=== PATIENT | male | born 1975 | race Hispanic/Latino ===

== ENCOUNTER → 2024-08-16 15:19 | Outpatient (CLI) | payer SELFPAY ==
[2024-08-16 18:54] LABS: Influenza A - CEPHEID Flu A NEGATIVE (NEGATIVE); Influenza B - CEPHEID Flu B NEGATIVE (NEGATIVE); Respiratory Syncytial Virus Negative (Negative)
[2024-08-16 18:57] LABS: COVID-19 CEPHEID 4-PLEX PCR Negative (Negative)
== END ==
PROVIDERS: Visit Provider Nurse Practitioner Family
DX: R05.9 Cough, unspecified (principal)
CPT/HCPCS: 0241U

== ENCOUNTER 2024-09-21 20:48 | Emergency (ER) | payer SELFPAY ==
[2024-09-21 21:10] VITALS: BP 140/90; PULSE 78; RESP 16; TEMP 36.8; O2SAT 97; BMI 31.8
--- NOTE | 2024-09-21 21:17 | DI.RAD.S_ITS ---
PROCEDURE: XR FINGER LT MIN 2V INDICATIONS: pain injury 2 weeks ago TECHNIQUE: AP hand, 2 views of the left 2nd finger(s) acquired. COMPARISON: None. FINDINGS: Bones: No fractures or dislocations. No suspicious bony lesions. Soft tissues: No suspicious soft tissue calcifications. IMPRESSION: Left hand and index finger without acute osseous abnormalities. If there are persistent symptoms or clinical suspicion for pathology, then repeat radiographs or advanced imaging (CT or MRI) may be considered for further evaluation. Dictated by: Alexx Rob M.D. on 09/21/2024 at 22:28 Approved by: Alexx Rob M.D. on 09/21/2024 at 22:28
[2024-09-22] MEDS: IBUPROFEN 400 MG TABLET 800 MG PO (01:26)
--- NOTE | 2024-09-22 01:40 | ED_ITS ---
HPI - Extremity Injury (Upper) General Chief Complaint: Extremity Injury, Upper Stated Complaint: injured L hand loading lawnmower fingers now numb Time Seen by Provider: 09/22/24 01:39 Source: patient Mode of arrival: Ambulatory History of Present Illness HPI narrative: Patient presents with left index finger pain following an injury approximately two weeks ago. 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 The patient visited a walk-in clinic where an X-ray was performed, but the results were not communicated to him. He reports persistent pain, particularly when the area is pinched, but denies any loss of sensation or visible bruising. The patient has not experienced any cuts or breaks in the skin. Related Data Home Medications Medication Instructions Recorded Confirmed No Known Home Medications 09/21/24 09/21/24 Allergies Allergy/AdvReac Type Severity Reaction Status Date / Time No Known Allergies Allergy Uncoded 08/16/24 15:13 Review of Systems Review of Systems Narrative: Constitutional: no fevers. Eyes: no visual changes. Ears/Nose/Throat: no nasal congestion or drainage. Respiratory: no soa. Cardiac: no chest pain. Gastrointestinal: no nausea and vomiting. Skin: no laceration, no rash. Musculoskeletal: reports pain in the left index finger, particularly when pinched. No loss of sensation or visible bruising. Neurologic: no confusion. Psychiatric: no mood change. Other: other. Patient History Social History Smoking Status: Never smoker Smoking Status: Never smoker Exam Narrative Exam Narrative: General: Well appearing, well nourished, in no distress. Skin: Good turgor, no rash, unusual bruising or prominent lesions. Head: Normocephalic, atraumatic. HEENT: Conjunctiva clear, EOM intact, PERRL, Mucous membranes moist. Neck: Supple, normal ROM. Heart: Regular rate and rhythm, no murmur or gallop or rubs. Lungs: Clear to auscultation. No rales, rhonchi, or wheezes. Abdomen: Soft and nontender. Bowel sounds normal. No mass or hernia. Back: Spine normal without deformity or tenderness, no CVA tenderness. Extremities: Tenderness in the left index finger, no visible bruising or swelling, full range of motion, no loss of sensation. Peripheral pulses intact. Neurologic: CN 2-12 normal. Normal sensation and motor exam. Psychiatric: Oriented X3. Normal mood and affect. Initial Vital Signs Initial Vital Signs: Vital Signs Temperature 98.3 F 09/21/24 21:10 Pulse Rate 78 09/21/24 21:10 Respiratory Rate 16 09/21/24 21:10 Blood Pressure 140/90 09/21/24 21:10 Pulse Oximetry 97 09/21/24 21:10 Oxygen Delivery Method Room Air 09/21/24 21:10 Course Orders Ordered: ED Orders 09/21/24 21:17 XR finger LT min 2V Stat Discontinued Medications Ibuprofen (Ibuprofen 400 Mg Tablet) 800 mg PO NOW ONE Stop: 09/22/24 01:24 Last Admin: 09/22/24 01:26 Dose: 800 mg Documented By: DION Vital Signs Vital signs: Vital Signs - 8 hr 09/21/24 21:10 09/22/24 01:57 Temperature 98.3 F Pulse Rate 78 72 Respiratory Rate 16 17 Blood Pressure 140/90 121/81 Pulse Oximetry 97 98 Oxygen Delivery Method Room Air Room Air MDM - Extremity Injury (Upper) Imaging Data Extremity x-ray #1: My Impression: I see no obvious fractures, dislocations or abnormalities on left hand/pointer finger Radiologist's Impression: Radiology calls for no osseous abnormalities on evaluation of plain film recommend CT or MRI outpatient I was needed MDM Narrative Medical decision making narrative: INITIAL EVALUATION AND PLAN: - Review X-ray results to confirm no fracture. - Referral to a hand specialist for further evaluation of potential ligament injury or soft tissue damage. - Recommend [id number] pain management with Tylenol or ibuprofen. - Provide discharge paperwork and specialist contact information. Differential diagnosis includes but is not limited to: ligament injury, fracture, infection soft tissue damage, contusion. Patient presents 2 weeks remote from a crush injury to his left pointer finger, has been trying to get this worked out patient but has not been communicated the results of his x-ray requesting an x-ray for continued pointer finger pain. On exam patient has well-appearing extremity without neurological deficit no doc of sensation, good capillary refill. No obvious deformity able to fully extend and flex the affected extremity. I reviewed patient's imaging that showed no signs of her, I gave him a referral to the orthopedic clinic and instructions for conservative management. No fever no chills no suspicion for infectious etiology of symptoms Discharge Plan Departure Patient Disposition: Home Clinical Impression: Finger sprain Activity Restrictions/Additional Instructions: Please return to the emergency department if you have worsening symptoms and wished to be re-evaluated if you have inability to move the finger new swelling, numbness tingling or concerns for weakness. Please follow up with Orthopedics for ongoing workup number symptoms Prescriptions: No Action No Known Home Medications Referrals: Miscellaneous,MD Maximiliano [Primary Care Provider] - Anoop Beck MD [Physician] - Stand Alone Forms: Patient Portal/API/Survey
[2024-09-22 01:57] VITALS: BP 121/81; PULSE 72; RESP 17; O2SAT 98
== END 2024-09-22 01:58 | disposition home or self-care (01) ==
PROVIDERS: Emergency Provider Emergency Medicine
DX: S63.611A Unspecified sprain of left index finger, initial encounter (principal); X58.XXXA Exposure to other specified factors, initial encounter
CPT/HCPCS: 73140; 99283